=== PATIENT | female | born 1945 | race African-American/Black ===

== ENCOUNTER 2020-03-04 16:49 | Emergency (ER) | payer MEDICARE ==
[~2020-03-04] VITALS: Ht 165.1 cm; Wt 97.0 kg
[2020-03-04 17:00] VITALS: BP 220/128
== END 2020-03-04 17:46 | disposition home or self-care (01) ==
LOC: EMS 16:49
DX: I10 Essential (primary) hypertension (principal); Z20.828 Contact with and (suspected) exposure to other viral communicable diseases
CPT/HCPCS: 99283; Z7502